=== PATIENT | male | born 1955 | race Caucasian/White ===

== ENCOUNTER → 2018-07-23 | Outpatient (CLI) | payer BC ==
[2018-07-23 16:31] LABS: Basophils % (A) 1 %; Eosinophils # (A) 0.1 k/uL (0-0.7); Eosinophils % (A) 2 %; HCT 45.4 % (39.0-53.0); Lymphocytes # (A) 1.1 k/uL (1.0-4.8); Lymphocytes % (A) 18 %; MCH 30.6 pg (25.0-35.0); MCHC 32.9 g/dL (31.0-37.0); MCV 92.9 fL (80.0-100.0); Mean Platelet Volume 6.4; Monocytes # (A) 0.4 k/uL (0-1.0); Monocytes % (A) 6 %; Neutrophils # (A) 4.4 k/uL (1.3-7.7); Neutrophils % (A) 72 %; Platelet Count 171 k/uL (150-450); RBC 4.89 m/uL (4.30-5.90); RDW 13.1 % (11.5-15.5); WBC 6.1 k/uL (3.8-10.6)
[2018-07-23 16:45] LABS: Potassium 4.3 mmol/L (3.5-5.1)
== END | disposition home or self-care (01) ==
LOC: LABPAT 15:31
PROVIDERS: ATTEND Orthopaedic Surgery
DX: Z01.818 Encounter for other preprocedural examination (principal); Z01.812 Encounter for preprocedural laboratory examination; M23.92 Unspecified internal derangement of left knee
CPT/HCPCS: 36415; 80051; 85025; 93005

== ENCOUNTER 2018-08-20 11:50 | Day surgery (SDC) | payer BC ==
[2018-08-17 14:00] VITALS: BMI 27.1
--- NOTE | 2018-08-19 21:42 | HP ---
HISTORY AND PHYSICAL REASON FOR ADMISSION: Surgery 08/20/2018. Ciro Magaña is a 63-year-old patient seen with progressive left knee pain. Treatment options were discussed with him. He elected to proceed with arthroscopy. Consent was obtained. PAST MEDICAL HISTORY: Hyperlipidemia. PAST SURGICAL HISTORY: Left knee arthroscopy. MEDICATIONS: Losartan, aspirin. ALLERGIES: None. SOCIAL HISTORY: Denies tobacco use. PHYSICAL EXAMINATION: Evaluation of the left knee is range of motion is 0 to 120 degrees. There is a mild effusion present. Tenderness along the medial joint line. Positive medial Khloe's. Crepitus medial patellofemoral compartments, range of motion. Ligaments stable. Hip rotation without pain. Distal neurovascular exam is intact. RADIOGRAPHS: Left knee radiographs revealed moderate to severe medial compartment patellofemoral compartment osteoarthritis. IMPRESSION: 1. Internal derangement, left knee with meniscal tear versus osteochondral tear. 2. Left knee osteoarthritis. PLAN: Left knee arthroscopy with partial meniscectomy versus chondroplasty and debridement. Surgery scheduled for 08/20/2018. MMODL / IJN: [id number] /
[~2018-08-20 11:50] MED LIST: DEXAMETHASONE SOD PHOSPHATE 10 MG/ML 1 ML VIAL IV ONE; LACTATED RINGERS 1,000 ML IV SCH; LIDOCAINE 1% 20 ML VIAL (10MG/ML) FOR IV START INTRADERMA PRN; MIDAZOLAM (PF) 2 MG/2 ML VIAL IV PRN; ONDANSETRON 4 MG/2 ML VIAL IVP ONE; ceFAZolin IN SWFI 2 GM/20 ML SYRINGE IVP ONE
[2018-08-20] MEDS ORDERED: LIDOCAINE 1% 20 ML VIAL (10MG/ML) FOR IV START INTRADERMA ONE (12:54)
[2018-08-20] MEDS ORDERED: MIDAZOLAM 2 MG/2 ML VIAL ONE (14:27)
[2018-08-20] MEDS ORDERED: ePHEDrine SULFATE/0.9% NACL/PF 50 MG/5 ML SYRINGE IV ONE (14:27)
[2018-08-20] MEDS ORDERED: fentaNYL (PF) 50 MCG/ML 2 ML AMP ONE (14:27)
[2018-08-20] MEDS ORDERED: PROPOFOL 10 MG/ML 20 ML VIAL IV ONE (14:27)
[2018-08-20] MEDS ORDERED: LIDOCAINE 1% INJ 10MG/ML (20 ML MDV) ONE (14:27)
[2018-08-20] MEDS ORDERED: BUPIVACAIN-EPI 0.5%-1:200,000 30 ML VIAL INTRAARTIC ONE (14:44)
[2018-08-20 15:14] VITALS: TEMP 97.7
[2018-08-20] MEDS ORDERED: KETOROLAC 30 MG/ML 1 ML VIAL IVP ONE (15:19)
--- NOTE | 2018-08-20 15:21 | P.OP ---
Date of Procedure: 08/20/18 Preoperative Diagnosis: Internal derangement left knee Postoperative Diagnosis: 1. Tear lateral meniscus left knee 2. Grade 4 chondromalacia medial femoral condyle left knee 3. Grade 4 chondromalacia femoral sulcus left knee 4. Partial ACL tear left knee 5. Reactive synovitis medial, lateral and suprapatellar compartments left knee Procedure(s) Performed: 1. Arthroscopic partial lateral meniscectomy left knee 2. Arthroscopic chondroplasty femoral sulcus left knee 3. Arthroscopic debridement partial ACL tear left knee 4. Arthroscopic partial synovectomy medial, lateral and suprapatellar compartments left knee Anesthesia: TJA, local Surgeon: Rock Rivera Estimated Blood Loss (ml): 6 Pathology: none sent Condition: stable Disposition: PACU Indications for Procedure: 63-year-old patient seen with progressive left knee pain. After treatment options were discussed, he elected to proceed with arthroscopy. Operative Findings: See description procedure Description of Procedure: Patient was taken to the operative suite. Patient underwent a general anesthetic by the department of anesthesia. Patient was given preoperative antibiotics. The left lower extremity was placed in a well-padded arthroscopic leg long. The left leg was prepped and draped in the normal sterile orthopedic fashion. A lateral parapatellar and suprapatellar incision was made. Trochars were inserted. Arthroscopy was initiated. Suprapatellar pouch revealed diffuse thick reactive synovitis. The patellofemoral joint appeared to articulate congruently. There was grade 2 chondromalacia of the patella and an area of grade 4 chondromalacia femoral sulcus with large osteochondral flap tear present. The scope was guided into the medial gutter. No loose bodies or plica were identified The scope was then guided into the medial compartment. A medial parapatellar incision was made. Trocar inserted followed by probe. There was evidence for previous medial meniscectomy. The residual meniscus was admitted was stable. There was diffuse grade 4 chondromalacia of the femoral condyle with areas of exposed bone. There was an area of grade 4 chondromalacia weightbearing surface medial tibial plateau with exposed bone as well. There was thick reactive synovitis anteriorly. I introduced motorize shaver and performed a partial synovectomy decompressing the thick reactive synovitis anteriorly. There was good decompression of the synovitis. Scope and probe were then guided into the intercondylar notch. Cruciates were identified, there appeared be some partial tearing of the anterior fibers of the anterior cruciate ligament. I debrided that down to stable tissue. There was about 50% remaining fibers which did appear to provide stability to the knee.. The scope and probe were then guided into lateral compartment. There was a radial tear of the lateral meniscus. There were grade 1 chondromalacia changes lateral compartment. There was reactive synovitis along the anterior aspect lateral compartment. A partial lateral meniscectomy was performed on a stable tissue. I performed a partial synovectomy decompressing the reactive synovitis. Shaver was removed. There was good decompression synovitis. The residual meniscus was stable. The scope was in guided back into the suprapatellar compartment. I introduced a motorized shaver into the super compartment. I debrided some piecemeal fragments of meniscus I encountered. I performed a chondroplasty of the femoral sulcus cane on a stable articular tissue. I performed a partial synovectomy decompressing the reactive synovitis. Shaver was removed. I took one more look on the entire knee, no residual debris. Instruments were now removed from the joint. The joint was infiltrated with .25% Marcaine. Steri- Strips were applied to the portal sites. Sterile dressings were applied. The patient was placed into a GARIMA hose. No tourniquet was utilized. The patient was awakened, transferred to a bed and taken to recovery stable satisfactory condition.
[2018-08-20] MEDS: fentaNYL (PF) 50 MCG/ML 2 ML AMP IV PRN ×4 (15:27→15:48)
[2018-08-20 15:32] VITALS: RESP 16
[2018-08-20 17:06] VITALS: BP 137/80; PULSE 68
== END 2018-08-20 17:17 | disposition home or self-care (01) ==
LOC: OR 11:50
PROVIDERS: ATTEND Orthopaedic Surgery
DX: M23.362 Other meniscus derangements, other lateral meniscus, left knee (principal); M65.862 Other synovitis and tenosynovitis, left lower leg; M94.262 Chondromalacia, left knee; M23.8X2 Other internal derangements of left knee; M17.12 Unilateral primary osteoarthritis, left knee; I10 Essential (primary) hypertension; E78.5 Hyperlipidemia, unspecified; Z79.891 Long term (current) use of opiate analgesic; Z79.82 Long term (current) use of aspirin; Z79.899 Other long term (current) drug therapy
CPT/HCPCS: 29881; 29876; J2250 ×2; J1100; J2405; J2001; J3010; J1885; J2704; J0690